=== PATIENT | male | born 1960 | race Caucasian/White ===

== ENCOUNTER 2024-07-05 20:42 | Emergency (ER) | payer MEDICARE, BC, SELFPAY ==
[2024-07-05] VITALS (11 sets, daily range): BP systolic 173–179; BP diastolic 82–87; PULSE 59–78; RESP 16; TEMP 36.4; O2SAT 93–100; BMI 32.1
--- NOTE | 2024-07-05 20:53 | ED_ITS ---
HPI - Back Pain/Injury General Date Seen: 07/05/24 Chief Complaint: Back Injury/Pain Stated Complaint: Back spasms Time Seen by Provider: 07/05/24 20:43 Source: patient Mode of arrival: ambulatory Limitations: no limitations History of Present Illness HPI Narrative: Patient is a 64-year-old male with left-sided back pain radiating down into his left leg, buttocks, groin. He states he has a history of bulging disc in the past is since then has been doing regular home physical therapy which has been keeping the pain under control. States over the past week they have been all atenolol so he has been sleeping on a hard bed in his not been keeping up with his exercises. States try do section slices today and felt is sharp pain in his back. States he has had pain like this 3 years ago and prednisone helped at that time. Took some Vicodin that has at home without any relief. No other injuries noted. States he feels like the pain is all within the muscles of his back. Denies fevers, chills, abdominal pain, headache, lightheadedness, dizziness, chest pain, shortness of breath. Does state the pain so bad is causing him to feel nauseated. No other concerns noted. Denies saddle anesthesia, fevers, urinary retention, urinary or fecal incontinence. Related Data Previous Rx's ?Medication ?Instructions ?Recorded lidocaine 5 % topical patch 1 patch topical DAILY #15 ea 07/05/24 (Lidoderm) Allergies Allergy/AdvReac Type Severity Reaction Status Date / Time No Known Drug Allergies Allergy Verified 07/05/24 20:49 Review of Systems Status of ROS: Reports: 10 or more systems reviewed and unremarkable except as noted in History and below PFSH PFS Social History Smoking Status: Light tobacco smoker What tobacco products do you use: cigars Do you use any of these nicotine containing products: None Second hand tobacco smoke exposure: No How often do you have a drink containing alcohol: monthly or less How often do you have six or more drinks on one occasion: Never AUDIT-C Alcohol total score: 1 Non-prescribed substance use: denies use service: No Exam Const: Vital Signs, click to edit/add: Vital Signs - 24 hr 07/05/24 20:46 07/05/24 23:33 Temperature 97.6 F Pulse Rate [Pulse Oximeter] 65 78 Respiratory Rate 16 16 Blood Pressure [Ri ght Upper Arm] 179/87 H 173/82 H Pulse Oximetry 100 98 Oxygen Delivery Me thod Room Air Room Air Course Vital Signs Vital signs: Initial Vital Signs Temperature 97.6 F 07/05/24 20:46 Temperature Source Temporal Artery Scan 07/05/24 20:46 Pulse Rate 65 07/05/24 20:46 Respiratory Rate 16 07/05/24 20:46 Blood Pressure 179/87 H 07/05/24 20:46 Blood Pressure Mean 117 H 07/05/24 20:46 Blood Pressure Position Supine 07/05/24 20:46 Pulse Oximetry 100 07/05/24 20:46 Oxygen Delivery Method Room Air 07/05/24 20:46 Vital Signs Temperature 97.6 F 07/05/24 20:46 Pulse Rate 65 07/05/24 20:46 Respiratory Rate 16 07/05/24 20:46 Blood Pressure 179/87 H 07/05/24 20:46 Pulse Oximetry 100 07/05/24 20:46 Oxygen Delivery Method Room Air 07/05/24 20:46 Temperature 97.6 F 07/05/24 20:46 Pulse Rate 78 07/05/24 23:33 Respiratory Rate 16 07/05/24 23:33 Blood Pressure 173/82 H 07/05/24 23:33 Pulse Oximetry 98 07/05/24 23:33 Oxygen Delivery Method Room Air 07/05/24 23:33 Medications Administered Medications: Discontinued Medications Generic Name Dose Route Start Last Admin Trade Name Freq PRN Reason Stop Dose Admin Ketorolac Tromethamine 15 mg 07/05/24 20:52 07/05/24 21:05 Ketorolac 15 Mg/Ml Inj IVP 07/05/24 20:53 15 mg ONCE ONE Administration Lidocaine 1 patch 07/05/24 22:10 07/05/24 23:35 Lidocaine 5% Patch TRANSDERMA 07/05/24 22:11 1 patch ONCE ONE Administration Protocol Morphine Sulfate 4 mg 07/05/24 20:52 07/05/24 21:05 Morphine 4 Mg/Ml Inj IVP 07/05/24 20:53 4 mg ONCE ONE Administration Ondansetron HCl 4 mg 07/05/24 20:52 07/05/24 21:05 Ondansetron 2 Mg/Ml Inj IVP 07/05/24 20:53 4 mg ONCE ONE Administration MDM - Back Pain/Injury MDM Narrative Medical decision making narrative: Patient is a 64-year-old male presenting for back pain. This does appear to be all related to back pain. He is tender at about the L2 region. I do believe this is a muscle spasm. To help get the pain under control quicker will put an IV and to give him morphine and Toradol. Will also give him Zofran for his nausea. Has it is nontraumatic I do not believe imaging is necessary. He is having no red flag symptoms so I am not concerned about cauda equina at this time. After the medication was some improvement in his pain based still is having quite a bit of back spasms radiating to his left groin. At did do a testicular exam he has normal cremasteric reflex. He does state the pain seems to be behind the left epididymis. Will do an ultrasound to better evaluate. Will also do a CT scan to make sure he is not having any kidney stones. Lidoderm patch ordered. Patient is feeling better after the Lidoderm patch. States the pain is now manageable. CT shows an incidental renal cyst. I informed the patient of this and he can follow-up with it outpatient. No signs of kidney stones. Ultrasound returned showing no concerning findings. He is feeling much better at this time. For his pain I will prescribe him Lidoderm patches, oxycodone, Toradol. He also would like some prednisone for his back pain as that has helped before. This will also be prescribed. Oxycodone, Toradol, prednisone all prescribed via instymeds. Imaging Data CT scan abdomen and pelvis: Attestation: I have reviewed the pertinent imaging results. Radiologist's impression: No acute intra-abdominal/pelvic abnormality, including obstructive uropathy as questioned. Mild prostatomegaly. Indeterminate 2.2 centimeter mildly complex right exophytic renal cyst. This can be further evaluated with outpatient nonemergent ultrasound or renal mass protocol CT/MRI. Please note that all CT scans at this facility use dose modulation, iterative reconstruction, and/or weight-based dosing when appropriate to reduce radiation dose to as low as reasonably achievable. Dictated by Daniel Mccauley MD @ 07/05/2024 10:43:48 PM Scrotal ultrasound: Attestation: I have reviewed the pertinent imaging results. Radiologist's impression: Unremarkable ultrasound of the scrotum and contents. No sign of torsion or inflammation. Dictated by Xavier Choi MD @ 07/05/2024 11:56:43 PM Discharge Plan Discharge Clinical Impression: Strain of lumbar region Qualifiers: Encounter type: initial encounter Qualified Code(s): S39.012A - Strain of muscle, fascia and tendon of lower back, initial encounter Patient Disposition: Home, Self-Care Condition: Improved Instructions: Back Pain (ED) Additional Instructions: There was a cyst seen in your right kidney. He can follow-up with your primary care provider follow-up this for possible non emergent imaging. Take the pain medication as directed. While using Toradol to not use other NSAIDs such as ibuprofen or naproxen. 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 Prescriptions: New lidocaine [Lidoderm] 5 % adhesive patch,medicated 1 patch topical DAILY Qty: 15 0RF Rx Instructions: leave on most painful area for up to 12 hrs Follow Up/Referrals: Lance Holden MD [Primary Care Provider] - Stand Alone Forms: [employer] Info Instructions
[2024-07-05] MEDS: MORPHINE 4 MG/ML INJ IVP (21:05)
[2024-07-05] MEDS: KETOROLAC 15 MG/ML inj IVP (21:05)
[2024-07-05] MEDS: ONDANSETRON 2 MG/ML inj 4 MG IVP (21:05)
--- OUTSIDE RECORDS SUMMARY | 2024-07-05 21:23 | XMS_ITS | Clinical Summary ---
Author Organization [facility] Address [address] [place] [id number] Care Team Providers Care Fbi Profiler Name Role Phone Unavailable Primary Care Provider Unavailabl e Allergies No known active allergies Medications psyllium (METAMUCIL SMOOTH TEXTURE) powd 1 tbsp daily in water 0 4 Active CPAPIndications: Obstructive sleep apnea New CPAP machine for home use at pressure: 5-16 cmw , Heated humidifier x 1 q 5 yr, Humidifier chamber x 1 q 6 mo, Full face mask x1 q 3mos, with cushion x 2 q mo, Heated tubing x 1 q 3 mo, Headgear x 1 q 6 mo, Filters: Disposable x 2 q mo non-disposable filters x1 q 6mo, Length of Need: 99 months, Frequency of use: Daily 1 Device 11 0 Active fluticasone (50 mcg per actuation) nasal solution (FLONASE)Indicat ions:Nasal congestion INSTILL 1 SPRAY INTO BOTH NOSTRILS AT BEDTIME. 48 mL 1 2 Active ascorbic acid, vitamin C, (Vitamin C) 1,000 mg tablet Take 1,000 mg by mouth once daily. Active amoxicillin (AMOXIL) 250 mg capsuleIndicatio ns:Acne, unspecified acne type Take 1 Capsule (250 mg) by mouth once daily. 90 Capsule 3 4 Active lisinopril-hydro chlorothiazide (10-12.5 mg) tablet (PRINZIDE; ZESTORETIC)Indic ations:HTN (hypertension) Take 0.5 Tablets by mouth once daily. 45 Tablet 3 4 Active Active Problems Problem Noted Date Diagnosed Date Dermatochalasis of both upper eyelids 04/29/2019 Myopia of both eyes with astigmatism and presbyo rocío 04/29/2019 History of colon polyps 09/04/2016 Overview (03/25/2022): Colonoscopy 08/2016 2 mm polyp, repeat in 5 years Colonoscopy 03/2022 normal , repeat in 5 years Posterior vitreous detachment of right eye 11/22 Immunizations Name Administration Dates Next Due AMB Influenza, IIV4 PF (=>6 mos Flulaval,Fluzone Fluarix)(Flu Clinic Only) 02/08/2020,02/28/2019,03/03/2014 COVID-19 vaccine (Moderna 100mcg/0.5mL) PF, MDV 09/04/2020,08/10/2020 COVID-19 vaccine (Moderna Syed malaika 50mcg/0.25mL) PF, MDV 04/10/2021 COVID-19 vaccine (Pfizer-Bio NTech 30mcg/0.3mL) 12YO+ BIVALENT PF, MDV 05/21/2022 Influenza RIV4 (Age 18+ Year s) PRESERV FREE 04/01/2022 Influenza, IIV3 (Age >=3 years) 05/30/2013 Influenza, IIV4 02/15/2023,,01/29/2018,2016,02/11/2016,03/03/2014 Pneumococcal Conj 20-valent (Prevnar 20) 10/26/2023 Tdap 12/07/2020,06/01/2014 Typhoid (injectable) 02/11/2016 Zoster (Shingrix-RZV, recombinant) 09/20/2021, Family History Medical History Relation Name Comments Amblyopia Father Cancer-prostate Father Cancer Mother Inflammatory bowel disease Sister 2 Relation Name Status Comments Brother Alive Nerve problems in low back Father (Age 91) Old age, h x of prostate CA in 70-80s Mother (Age 67) Lung cance r w. hx of smoking Sister 1 Alive Sister 2 Alive Colectomy for I BD Social History Tobacco Use Types Packs/Day Years Used Date Smoking Tobacco: Former Cigars Q uit: 03/01/2014 Smokeless Tobacco: Former Snuff Tobacco Cessation:Counseling Given: Yes Alcohol Use Standard Drinks/Week Comments Yes 6 (1 standard drink = 0.6 oz pur e alcohol) 5-7 glasses per week PHQ-2 Answer Date Recorded PHQ-2 TOTAL SCORE 0 12/04/2022 Social Connections Answer Date Recorded Frequency of Communication with Friends and Fami ly Not on file 05/14/2021 Financial Resource Strain Answer Date R ecorded Difficulty of Paying Living Expenses Not on file 05/14/2021 Difficulty of Paying Living Expenses Not on file 05/14/2021 Sex and Gender Information Value Date Recorded Sex Assigned at Not on file Legal Sex Male 10:51 AM PATTERN CLERK Gender Identity Not on file Sexual Orientation Not on file 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 file Not on file Not on file Obstetrics History Last Filed Vital Signs Vital Sign Reading Time Taken Comments Blood Pressure 135/82 10/26/2023 9:58 AM CDT Pulse 68 10/26/2023 9:58 AM CDT Temperature 37 C (98.6 F) 04/24/2021 1:38 PM PATTERN CLERK Respiratory Rate 16 04/26/2020 2:27 PM PATTERN CLERK Oxygen Saturation 100% 10/26/2023 9:58 AM CDT Inhaled Oxygen Concentration - - Weight 109.3 kg (241 lb) 10/26/2023 9:58 AM CDT Height 190.5 cm (6' 3) 12/04/2022 8:45 AM CDT Body Mass Index 30.12 12/04/2022 8:45 AM CDT Plan of Treatment Upcoming Encounters Date Type Department Care Team (Late st Contact Info) Description 07/06/2024 12:55 PM PATTERN CLERK Office Visit [facility] [address] [place], [place] [id number] [place] [address] [place], [place] [phone] Health Maintenance Due Date Last Done Comments Medicare Wellness for age 65+ 2023 BMI (ht and wt on same day) for age 18+ 12/05/2023 12/04/2022, 11/05/2021, 09/25/2021, Additional history exists Depression screening for age 12+ 12/05/2023 12/04/2022, 04/24/2021, 04/20/2020, Additional history exists COVID-19 vaccine series ( season) 2024 05/21/2022, 04/10/2021, 09/04/2020, Additional history exists Influenza for age 65+ 01/17/2024 02/15/2023 , 04/01/2022, 03/11/2021, Additional history exists Colonoscopy through age 75 03/25/202703/25, 03/25/2022, 09/04/2016, Additional history exists Lipids for age 45-75 12/05/2027 12/04/2022, 06/01/19 Tetanus booster 12/07/2030 12/07/2020, 06/01/2014 RSV vaccine for adults or (1 - 1-dose 75+ series) 2033 Hepatitis C screening for ag e 18-79 Completed 05/30/2013 Tdap Completed 12/07/2020, 06/01/2014 Zoster (shingles) series for age 50+ Completed 09/20/2021, 06/24/2021 Pneumococcal series for age 50+ Completed Procedures Procedure Name Priority Date/Time Associated Diagnosis Comments LIPID PANEL W REFLEX MEASURED LDL Routine 12/04/2022 9:45 AM CDT Screening cholesterol level COLONOSCOPY 03/25/2022 1:24 PM PATTERN CLERK ANTI HCV Routine 05/30/2013 2:44 PM PATTERN CLERK Need for hepatitis C screening test from Last 3 Months or Most Recently Relevant to Health Maintenance Results * (ABNORMAL) LIPID PANEL W REFLEX MEASURED LDL (12/04/2022 9:45 AM CDT) CHOLESTEROL,TOTAL 181 100 - 199 mg/dL 12/04/2022 6:18 PM CDT [facility] Comment: Cholesterol, Total Reference Ranges Desirable <200 mg/dL Borderline 200-239 mg/dL High >=240 mg/dL TRIGLYCERIDES 189(H) <150 mg/dL 12/04/2022 6:18 PM CDT [facility] HDL CHOLESTEROL 47 >40 mg/dL 6:18 PM CDT [facility] NON-HDL CHOLESTEROL 134 <145 mg/dl 12/04/2022 6:18 PM CDT [facility] CHOL/HDL RATIO 3.85 <4.50 12/04/2022 6:18 PM CDT [facility] LDL CHOLESTEROL 96 <=130 mg/dL 12/04/2022 6:18 PM CDT [facility] VLDL CHOLESTEROL 38(H) <=30 mg/dL 12/04/2022 6:18 PM CDT [facility] PROVIDER ORDERED STATUS RANDOM 12/04/2022 6:18 PM CDT [facility] Blood BLOOD SPECIMEN / Unknown Venipuncture / Unknown 12/04/2022 9:45 AM CDT 12/04/2022 9:46 AM CDT us Lance Holden MD CHEMISTRY Final Re sult [facility] [address] [place] [address], [place] * COLONOSCOPY (03/25/2022 1:24 PM PATTERN CLERK) 03/25/2022 1:24 PM PATTERN CLERK Narrative Transcriptions Reymundo Contreras MD - 03/25/2022 2:11 PM CST Patient Name: Lance Butlerjulio cesar Procedure Date: 03/25/2022 Gender: Male Date of : 1960 Admit Type: Outpatient Procedure: Colonoscopy Proceduralist: Reymundo Contreras MD , Carmen Garces, RN (Nurse), Cristal Franco RN (Nurse) Indications/Pre-Op Diagnosis: High risk colon cancer surveillance:Personal history of adenoma less than 10 mm in size, Last colonoscopy: August 2016 Medications: Fentanyl 100 micrograms IV, Midazolam 2 mgIV Procedure Description: The patient had risks, benefits and alternatives explained to andgave informed consent. The patient had a stable cardiopulmonary status and judged an adequate candidate for conscious sedation. The endoscope [id number] was passed through the anus andadvanced to the cecum, identified by appendiceal orifice and ileocecal valve.The colonoscopy was performed without difficulty. The patient toleratedthe procedure well. The quality of the bowel preparation was good. The ileocecal valve, appendiceal orifice, and rectum were photographed. Complications: No immediate complications. Estimated Blood Loss & Specimen: Estimated blood loss: none. Specimen collected - None Findings: The perianal and digital rectal examinations were normal. The entire examined colon appeared normal. Impressions/Post-Op Diagnosis: - The entire examined colon is normal. - No specimens collected. Recommendation: - Patient has a contact number available for emergencies. The signsand symptoms of potential delayed complications were discussed with the patient. Return to normal activities tomorrow. Written discharge instructions were provided to the patient. - Resume previous diet. - Continue present medications. - Repeat colonoscopy in 5 years for surveillance. Moderate Sedation: A time out was performed before the procedure. Moderate (conscious) sedation was administered by the endoscopy nurse and supervised bythe endoscopist. The following parameters were monitored: oxygensaturation, heart rate, blood pressure, EKG, CO2, respiratory rate, adequacy of pulmonary ventilation and reponse to care. Please refer to the patient's medical record flowsheets and nursing notes for moderate sedation details. Total physician intraservice time was 16 minutes. Reymundo Contreras MD 03/25/2022 2:11:53 PM This report has been signed electronically. Note Initiated On: 03/25/2022 1:24 PM Procedure Code(s): --- Professional --- 56278, Colonoscopy, flexible; diagnostic, including collection of specimen(s) bybrushing or washing, when performed (separateprocedure) Diagnosis Code(s): --- Professional --- Z86.010, Personal history of colonicpolyps CPT copyright 2020 [employer]. All rights reserved. The codes documented in this report are preliminary and upon icd 9 coder reviewmay be revised to meet current compliance requirements. Scope In: 1:51:28 PM Scope Withdrawal Time 0 hours 8 minutes 23 seconds Scope Out: 2:06:06 PM us Reymundo Contreras MD PROCEDURE ORD Final Res ult * ANTI HCV (05/30/2013 2:44 PM PATTERN CLERK) ANTI HCV Non-reacti ve [facility] Blood specimen (specimen) BLOOD SPECIMEN / Unknown 05/30/2013 2:44 PM PATTERN CLERK 05/30/2013 2:39 PM PATTERN CLERK us Giorgi Schilling DO SEND OUTS Final Result [facility] [place]NAL [address]IP [id number] [address] [place] [id number] from Last 3 Months or Most Recently Relevant to Health Maintenance Insurance [id number] [facility] [address] [facility] [place] BLUE MR [place] ONLY Advance Directives * Full Code (Latest Code Status on File) Date Activated Date Inactivated Comments 04/26/2020 10:53 AM 04/26/2020 4:32 PM Question Answer Comments Code Status Discussion: Not Discussed
--- NOTE | 2024-07-05 22:16 | CRLHL7_ITS ---
For Patients: As a result of the Century Cures Act, medical imaging exams and procedure reports are released immediately into your electronic medical record. You may view this report before your referring provider. If you have questions, please contact your health care provider. INDICATION: Left flank pain. TECHNIQUE: CT abdomen and pelvis without contrast. COMPARISON: None. FINDINGS: Lower chest: Scattered atelectasis. Liver: Normal in size and attenuation. No suspicious masses. Gallbladder and bile ducts: No stones or inflammation. No biliary dilatation. Pancreas: Unremarkable. No mass or inflammation. Spleen: Normal in size. No masses. Adrenal glands: Normal in size. No nodules. Kidneys: Indeterminate 2.2 centimeter mildly complex right exophytic renal cyst. Normal in size. No stones, or hydronephrosis. GI tract: Unremarkable. Normal in caliber. No sign of mass or inflammation. Normal appendix. Vasculature: Abdominal aorta is normal in caliber. Lymph nodes: No lymphadenopathy. Peritoneum/Abdominal Wall: Unremarkable. No sign of mass or infiltration. No free air or significant free fluid. Pelvis: Mild prostatomegaly. No pelvic masses. Bones: Degenerative changes. IMPRESSION: No acute intra-abdominal/pelvic abnormality, including obstructive uropathy as questioned. Mild prostatomegaly. Indeterminate 2.2 centimeter mildly complex right exophytic renal cyst. This can be further evaluated with outpatient nonemergent ultrasound or renal mass protocol CT/MRI. Please note that all CT scans at this facility use dose modulation, iterative reconstruction, and/or weight-based dosing when appropriate to reduce radiation dose to as low as reasonably achievable. Dictated by Daniel Mccauley MD @ 07/05/2024 10:43:48 PM (Electronically Signed)
--- NOTE | 2024-07-05 22:16 | CRLHL7_ITS ---
For Patients: As a result of the Century Cures Act, medical imaging exams and procedure reports are released immediately into your electronic medical record. You may view this report before your referring provider. If you have questions, please contact your health care provider. Indication: Left testicular pain that started tonight. Technique: Ultrasound of the scrotum and contents. Sonographic davies-scale images were obtained with spectral and color Doppler waveform and spectral waveform analysis of the testicles. Comparison: None. Findings: Both testicles are normal in size and echotexture. No masses. No suspicious calcifications. Arterial and venous color Doppler blood flow and spectral waveforms are present in both testicles. The right testicle measures 4.6 x 2.5 x 2.6 cm and the left testicle measures 4.3 x 2.2 x 2.9 cm. Epididymis: Unremarkable bilaterally. Normal blood flow. Other: No significant hydrocele. No sign of varicocele. Scrotal wall is normal. Impression: Unremarkable ultrasound of the scrotum and contents. No sign of torsion or inflammation. Dictated by Xavier Choi MD @ 07/05/2024 11:56:43 PM (Electronically Signed)
[2024-07-05] MEDS: LIDOCAINE 5% PATCH 1 PATCH TRANSDERMA (23:35)
[2024-07-06] VITALS: PULSE 65; O2SAT 94
== END 2024-07-06 00:22 | disposition home or self-care (01) ==
PROVIDERS: Emergency Provider Student in an Organized Health Care Education/Training Program; PCP Family Medicine
DX: S39.012A Strain of muscle, fascia and tendon of lower back, initial encounter (principal); R10.32 Left lower quadrant pain
CPT/HCPCS: 74176; 76870; 93976; 96374; 96375; 99284; A9270; J1885; J2270; J2405